=== PATIENT | female | born 1980 | race African-American/Black ===

== ENCOUNTER 2016-12-15 19:06 | Emergency (ER) | payer OTHER ==
[~2016-12-15] VITALS: Ht 165.1 cm; Wt 104.3 kg
[~2016-12-15 19:06] MED LIST: DIPH25CA58 PO; FAMO-63 PO; PRED50TA PO; SULF1TAB24 PO; TRAM-48 PO
[2016-12-15 19:10] VITALS: BP 121/68
[2016-12-15] MEDS ORDERED: LIDOCAINE 1% / SOD BICARB 8.4% 20 ML VIAL. IJ ONE (20:30)
[2016-12-15] MEDS ORDERED: HYDR-971 PO (20:56)
[2016-12-15] MEDS ORDERED: SULF1TAB24 PO (20:56)
--- NOTE | 2016-12-15 20:56 | PHYS DOC ---
Past Medical History Past Medical History: No Pertinent History Past Surgical History: Other Additional Past Surgical Histo: (benign) lumpectomy bilateral 20 years ago Alcohol Use: None Drug Use: None Adult General Chief Complaint Chief Complaint: ABSCESS HPI HPI Patient is a 35 year old female who presents with an abscess underneath her left breast for 4-5 days. Patient states her tetanus is up-to-date. Denies any fever. Review of Systems Review of Systems Constitutional: Denies fever or chills [] Musculoskeletal: Denies back pain or joint pain [] Integument:an abscess underneath her left breast Neurologic: Denies headache, focal weakness or sensory changes [] Endocrine: Denies polyuria or polydipsia [] Current Medications Current Medications Current Medications Medications (Trade) Dose Ordered Sig/Rocky Start Time Stop Time Status Last Admin Dose Admin Acetaminophen (Tylenol) 500 mg 1X ONCE 12/15/16 21:00 12/15/16 21:01 12/15/16 20:33 500 MG Lidocaine/Sodium Bicarbonate (Buffered Lidocaine 1%) 20 ml 1X ONCE 12/15/16 20:30 12/15/16 20:31 DC 12/15/16 20:33 20 ML Allergies Allergies Allergies Coded Allergies Type Severity Reaction Last Updated Verified No Known Drug Allergies 06/25/15 No Physical Exam Physical Exam Constitutional: Well developed, well nourished, no acute distress, non-toxic appearance. [] Skin: Underneath the left breast, there is an area of induration approx. 2X2 cm , the area is firm tender to palpate with slight fluctuance in the center, there is drainage coming from the center. The area is surrounded by 1 cm of erythema. The area is warm and tender. Back: No tenderness, no CVA tenderness. [] Extremities: No tenderness, no cyanosis, no clubbing, ROM intact, no edema. [] Neurologic: Alert and oriented X 3, normal motor function, normal sensory function, no focal deficits noted. [] Psychologic: Affect normal, judgement normal, mood normal. [] Current Patient Data Vital Signs Vital Signs Date Time Temp Pulse Resp B/P (MAP) Pulse Ox O2 Delivery O2 Flow Rate FiO2 12/15/16 19:10 98.1 80 16 100 Room Air 98.1 EKG EKG [] Radiology/Procedures Radiology/Procedures Indication: abscess underneath the left breast Procedure: The patient was positioned appropriately. Local anesthesia was 1% buffered lidocaine. An incision was then made over the apex of the lesion and small amount of bloody yellow material was expressed. The drainage cavity was irrigated and covered with sterile gauze. The patients tetanus status updated as needed. The patient tolerated the procedure well. Complications: none.[] Course & Med Decision Making Course & Med Decision Making Pertinent Labs and Imaging studies reviewed. (See chart for details) Patient has an abscess underneath her left breast which i attempted to drain, small amount of yellow bloody material was expressed. Discharged with Bactrim. Tetanus is up-to-date. Warm compresses recommended to the area. Provided return precautions. Dragon Disclaimer Dragon Disclaimer This electronic medical record was generated, in whole or in part, using a voice recognition dictation system. Departure Departure Impression: Primary Impression: Left breast abscess Disposition: 01 HOME, SELF-CARE Condition: STABLE Referrals: NO PCP (PCP) Follow-up with your doctor in 7 days Patient Instructions: Abscess, [id number] Additional Instructions: You were seen for an abscess underneath the left breast. Keep the area clean and dry. Apply warm compresses to the area 2 or 3 times a day. Complete your antibiotics. Come back to the ED if symptoms worsen. Scripts Sulfamethoxazole/Trimethoprim (BACTRIM DS TABLET) 1 Each Tablet 1 TAB PO BID, #20 TAB Prov: FIDELIA HOROWITZ APRN 12/15/16 Hydrocodone/Apap 5-325 (NORCO 5-325 TABLET) 1 Each Tablet 1 TAB PO PRN Q6HRS Y for PAIN, #20 TAB 0 Refills Prov: FIDELIA HOROWITZ APRN 12/15/16 FIDELIA HOROWITZ APRN Dec 15, 2016 20:56
[2016-12-15] MEDS ORDERED: ACETAMINOPHEN 500 MG TABLET PO ONE (21:00)
== END 2016-12-15 21:00 | disposition home or self-care (01) ==
LOC: ER 19:06
DX: N61.1 Abscess of the breast and nipple (principal)
CPT/HCPCS: 10060; 99283-25

== ENCOUNTER 2019-09-04 20:54 | Emergency (ER) | payer OTHER ==
[~2019-09-04] VITALS: Ht 165.1 cm; Wt 100.0 kg
[~2019-09-04 20:54] MED LIST changes: +HYDR-3164 PO; +PRED20TA PO
[2019-09-04 21:07] VITALS: BP 135/58
[2019-09-04] MEDS ORDERED: PRED50TA PO (21:36)
[2019-09-04] MEDS ORDERED: predniSONE 10 MG TABLET PO ONE (21:45)
--- NOTE | 2019-09-05 05:41 | PHYS DOC ---
Past Medical History Past Medical History: No Pertinent History Past Surgical History: Other Additional Past Surgical Histo: (benign) lumpectomy bilateral 20 years ago Smoking Status: Never Smoker Alcohol Use: None Drug Use: None Adult General Chief Complaint Chief Complaint: ALLERGIC REACTION HPI HPI Patient is a 38 year old -[place] female who presents with urticaria after taking penicillin earlier this afternoon and applying Riester air. Patient with diffuse urticaria over 50s torso. No shortness of breath, airway swelling. No prior penicillin allergy. Patient penicillin for an infected tooth. No other symptoms or complaints.[] Review of Systems Review of Systems ROS as per HPI All other systems were reviewed and found to be within normal limits, except as documented in this note. Current Medications Current Medications Current Medications Medications (Trade) Dose Ordered Sig/Rocky Start Time Stop Time Status Last Admin Dose Admin Prednisone (Prednisone) 50 mg 1X ONCE 09/04/19 21:45 09/04/19 21:46 DC 09/04/19 21:45 50 MG Allergies Allergies Allergies Coded Allergies Type Severity Reaction Last Updated Verified No Known Drug Allergies 06/25/15 No Physical Exam Physical Exam Constitutional: Well developed, well nourished, no acute distress, non-toxic appearance. [] HENT: Normocephalic, atraumatic, bilateral external ears normal, oropharynx, nose normal. [] Eyes: PERRLA, EOMI, conjunctiva normal, no discharge. [] Neck: Normal range of motion. [] Cardiovascular:Heart rate regular rhythm, no murmur. [] Lungs & Thorax: Bilateral breath sounds clear to auscultation [] Abdomen: Bowel sounds normal, soft, no tenderness. [] Skin: urticaria to face and torso [] Back: No tenderness. [] Extremities: No tenderness, no edema. [] Neurologic: Alert and oriented X 3, normal motor function, normal sensory function, no focal deficits noted. [] Psychologic: Affect normal, judgement normal, mood normal. [] Current Patient Data Vital Signs Vital Signs Date Time Temp Pulse Resp B/P (MAP) Pulse Ox O2 Delivery O2 Flow Rate FiO2 09/04/19 21:07 97.7 108 16 135/58 (83) 100 Room Air 97.7 EKG EKG [] Radiology/Procedures Radiology/Procedures [] Course & Med Decision Making Course & Med Decision Making Pertinent Labs and Imaging studies reviewed. (See chart for details) [Prednisone given. Recommend supportive care. ] Ramos Disclaimer Ramos Disclaimer This electronic medical record was generated, in whole or in part, using a voice recognition dictation system. Departure Departure Impression: Primary Impression: Allergic reaction Disposition: HOME, SELF-CARE Condition: STABLE Patient Instructions: Allergies, Generic Additional Instructions: Please take 50 mg of Benadryl 4 times daily and prednisone as directed. Avoid future amoxicillin and increase exposure. Follow-up with your PCP for reevaluation. Return to the ED if new or worsening symptoms. Scripts Prednisone (PREDNISONE) 50 Mg Tablet 1 TAB PO DAILY, #5 TAB Prov: CHRISS ELY DO 09/04/19 CHRISS ELY DO Sep 05, 2019 05:41
== END 2019-09-04 21:48 | disposition home or self-care (01) ==
LOC: ER 20:54
DX: L50.0 Allergic urticaria (principal)
CPT/HCPCS: 99283; J7512

== ENCOUNTER → 2020-10-08 | Outpatient (CLI) | payer OTHER ==
--- NOTE | 2020-10-08 15:23 | RAD ---
EXAM: OB ULTRASOUND, > 14 WEEKS HISTORY: Uterine size and dates discrepancy. COMPARISON: None. TECHNIQUE: Multiple grayscale images, color Doppler, and M-mode images of the uterus are obtained. FINDINGS: There is a single intrauterine gestation in breech presentation. The placenta is grade 1 and posterio r in location. There is marginal placenta previa. The amount of amniotic fluid appears appropriate. Amniotic fluid volume is grossly normal. The cervix is closed and measures 6.9 cm in length. Biometrical data: BPD = 4.28 cm for 19 weeks 0 days. HC = 16.07 cm for 18 weeks 6 days. AC = 13.27 cm for 18 weeks 5 days. FL = 2.90 cm for 18 weeks 6 days. HC/AC ratio = 1.21. Overall, the estimated sonographic gestational age is 18 weeks and 2 days for an estimated date of de livery of 03/05/2021. The estimated date of delivery provided by the last menstrual period is . Estimated weight is 260 grams. A 4 chamber heart is identified with positive cardiac activity. The estimated heart rate is 143 beats per minute. Bilateral upper and lower extremities are identified. There is a two-vessel cord with normal cord insertion visualized. stomach and urinary bladder are identified. Both kidneys are seen. The spine and brain are unremarkable. No obvious anatomic abnormalities are identified. The maternal adnexal regions are unremarkable. IMPRESSION: 1. Single intrauterine fetus in breech presentation with normal heart rate and estimated gestational age based on ultrasound measurements of 18 weeks and 2 days. The estimated gestational age based on L MP is 18 weeks and 6 days. 2. Marginal placenta previa. Sonographic follow-up can performed to assess for interval change. 3. Two-vessel umbilical cord. Close clinical follow-up is recommended. The remainder the anatom y survey is unremarkable. Electronically signed by: Taylor Kim MD (10/08/2020 3:21 PM) [id number]
== END ==
LOC: US 13:52
PROVIDERS: ATTEND Obstetrics & Gynecology
DX: O26.842 Uterine size-date discrepancy, second trimester (principal); Z3A.18 18 weeks gestation of pregnancy
CPT/HCPCS: 76805

== ENCOUNTER → 2020-12-16 | Outpatient (CLI) | payer OTHER ==
--- NOTE | 2020-12-16 16:42 | RAD ---
EXAM: OB ULTRASOUND, > 14 WEEKS HISTORY: Placenta previa follow-up. COMPARISON: 10/08/2020 TECHNIQUE: Multiple grayscale images, color Doppler, and M-mode images of the uterus are obtained. FINDINGS: There is a single intrauterine gestation in variable presentation. The placenta is low-lying this ext ends to within 1.4 cm from the internal cervical os. There is no evidence of placenta previa. The sachin unt of amniotic fluid appears appropriate. The cervix is obscured due to bladder volume. Biometrical data: BPD = 6.88 cm for 27 weeks 5 days. HC = 26.08 cm for 28 weeks 3 days. AC = 24.56 cm for 28 weeks 6 days. FL = 5.37 cm for 28 weeks 3 days. HC/AC ratio = 1.06. Overall, the estimated sonographic gestational age is 28 weeks and 3 days for an estimated date of de livery of 03/07/2021. The estimated date of delivery provided by the last menstrual period is 021. Estimated weight is 1248 grams. The heart rate is 136 beats per minute. The anatomy is not formally assessed. The maternal adnexal regions are not formally assessed. IMPRESSION: 1. Single intrauterine fetus in variable presentation with a normal heart rate and gestational age pa tient also measurements of 28 weeks and 3 days. 2. Low-lying placenta extending to 1.4 cm from the internal cervical os. 3. Note is made that the anatomy is not formally assessed on this exam. This is formally assess ed on the anatomy survey performed 10/08/2020. This includes a two-vessel umbilical cord identified on the prior exam which is not assessed on the current study. Electronically signed by: Taylor Kim MD (12/16/2020 4:40 PM) [id number]
== END ==
LOC: US 15:57
PROVIDERS: ATTEND Obstetrics & Gynecology
DX: O26.843 Uterine size-date discrepancy, third trimester (principal); O44.03 Complete placenta previa NOS or without hemorrhage, third trimester; Z3A.28 28 weeks gestation of pregnancy
CPT/HCPCS: 76815